=== PATIENT | female | born 1995 | race Caucasian/White ===

== ENCOUNTER 2019-05-01 10:30 | Inpatient (IN) | payer MEDICAID ==
[~2019-05-01 10:30] MED LIST: ETOMIDATE 20 MG INJ; SUCCINYLCHOLINE CHLORIDE 100 MG/5 ML SYG IV; VECURONIUM 10 MG VIAL
[2019-05-01] MEDS ORDERED: LACTATED RINGER'S 1,000 ML IV (10:33)
[2019-05-01] MEDS ORDERED: METHYLERGONOVINE 0.2 MG INJ IM ×2 (11:00→14:00)
[2019-05-01] MEDS ORDERED: CARBOPROST 250 MCG INJ IM ×2 (11:00→14:00)
[2019-05-01] MEDS ORDERED: OXYTOCIN 30 UNITS/LR 500 ML IV ×2 (11:00→14:00)
[2019-05-01] MEDS ORDERED: BETAMET NA PHOS/AC(6 MG/ML) 2 ML INJ SYG IM (11:00)
[2019-05-01] MEDS ORDERED: MISOPROSTOL 200 MCG TAB PR ×2 (11:00→14:00)
[2019-05-01 11:01] LABS: ADD MAN DIFF? NO
[2019-05-01] MEDS ORDERED: morphine 10 MG INJ (11:01)
[2019-05-01] MEDS ORDERED: LIDOCAINE 2% (SDV) 5 ML INJ (11:01)
[2019-05-01] MEDS ORDERED: OXYTOCIN 30 UNITS/LR 500 ML BAG IV (11:01)
[2019-05-01 11:08] LABS: WHITE BLOOD COUNT 12.4 10^3/ul (4.8-10.8)
[2019-05-01 11:08] LABS: BASOPHIL # 0.1 10^3/ul (0.0-0.1); BASOPHILS % 0.4 % (0.0-2.0); EOSINOPHILS % 0.3 % (0.0-7.0); HEMOGLOBIN 11.9 g/dl (12.0-16.0); LYMPHOCYTES # 1.4 10^3/ul (0.8-2.9); LYMPHOCYTES % 11.2 % (15.0-51.0); MEAN CORPUSCULAR HEMOGLOBIN 29.5 pg (29.0-33.0); MEAN CORPUSCULAR HGB CONC 33.1 g/dl (32.0-37.0); MEAN CORPUSCULAR VOLUME 89.1 fl (82.0-101.0); MEAN PLATELET VOLUME 10.9 fl (7.4-10.4); MONOCYTE # 0.5 10^3/ul (0.3-0.9); MONOCYTES % 3.8 % (0.0-11.0); NEUTROPHIL # 10.2 10^3/ul (1.6-7.5); NEUTROPHILS % 82.3 % (39.0-77.0); PLATELET COUNT 181 10^3/UL (140-415); RED BLOOD COUNT 4.04 10^6/ul (4.20-5.40)
[2019-05-01] MEDS ORDERED: LABETALOL HCL 20MG INJ (11:13)
[2019-05-01] MEDS ORDERED: PROPOFOL 20 ML (11:13)
[2019-05-01] MEDS ORDERED: SUGAMMADEX SODIUM 200 MG/2 ML VIAL IV (11:13)
[2019-05-01] MEDS ORDERED: ROCURONIUM 50 MG INJ (11:13)
[2019-05-01] MEDS ORDERED: SUCCINYLCHOLINE CHLORIDE 100 MG/5 ML SYG IV (11:14)
[2019-05-01] MEDS ORDERED: DEXAMETHASONE 4 MG/ML 1 ML INJ (11:14)
[2019-05-01] MEDS ORDERED: ONDANSETRON 4 MG INJ (11:15)
[2019-05-01] MEDS ORDERED: MIDAZOLAM 1 MG/ML 2 ML INJ (11:20)
[2019-05-01 11:24] LABS: INR 0.85; PROTIME 11.7 Sec (11.9-14.9); PT RATIO 0.9
[2019-05-01 11:25] LABS: PARTIAL THROMBOPLASTIN TIME 24.6 Sec (23.0-35.0)
[2019-05-01 11:30] LABS: ALANINE AMINOTRANSFERASE 11 IU/L (13-69); ALBUMIN/GLOBULIN RATIO 0.96; ALKALINE PHOSPHATASE 120 IU/L (42-121); ANION GAP 8 (5-13); ASPARTATE AMINO TRANSFERASE 26 IU/L (15-46); BILIRUBIN,INDIRECT 0.3 mg/dl (0-1.1); BILIRUBIN,TOTAL 0.3 mg/dl (0.2-1.3); BLOOD UREA NITROGEN 6 mg/dl (7-20); CALCIUM 8.2 mg/dl (8.4-10.2); CARBON DIOXIDE 21 mmol/L (21-31); CHLORIDE 110 mmol/L (97-110); CREATININE 0.65 mg/dl (0.44-1.00); Estimated GFR > 60 mL/min (>60); GLUCOSE 103 mg/dl (70-220); POTASSIUM 3.9 mmol/L (3.5-5.1); SODIUM 139 mmol/L (135-144); TOTAL PROTEIN 6.1 g/dl (6.1-8.1); URIC ACID 7.1 mg/dl (3.1-7.9)
[2019-05-01] MEDS ORDERED: ONDANSETRON 4 MG INJ IV (12:00)
[2019-05-01] MEDS ORDERED: ALBUTEROL 0.083% (NEB) 2.5 MG/3 ML AMP HHN (12:00)
[2019-05-01] MEDS ORDERED: LABETALOL HCL 20MG INJ IV (12:00)
[2019-05-01] MEDS ORDERED: EPHEDrine 25 MG/5 ML SYG IV (12:00)
[2019-05-01] MEDS ORDERED: MEPERIDINE 25 MG INJ IV (12:00)
[2019-05-01] MEDS ORDERED: DIPHENHYDRAMINE 50 MG INJ IV (12:00)
[2019-05-01] MEDS ORDERED: KETOROLAC 30 MG INJ IV (12:00)
[2019-05-01] MEDS ORDERED: hydrALAzine 20 MG INJ IV (12:00)
[2019-05-01] MEDS ORDERED: MIDAZOLAM 1 MG/ML 2 ML INJ IV (12:00)
[2019-05-01] MEDS ORDERED: HYDROmorphONE 0.5 MG/0.5 ML SYG IV ×3 (12:00)
[2019-05-01] MEDS ORDERED: LORAZEPAM 2 MG INJ (12:21)
[2019-05-01 12:26] LABS: ADD MAN DIFF? NO
[2019-05-01 12:28] LABS: ABNORMAL IP MESSAGE 1; BASOPHIL # 0.1 10^3/ul (0.0-0.1); BASOPHILS % 0.3 % (0.0-2.0); EOSINOPHILS % 0.1 % (0.0-7.0); HEMATOCRIT 38.8 % (37.0-47.0); HEMOGLOBIN 12.8 g/dl (12.0-16.0); LYMPHOCYTES # 1.3 10^3/ul (0.8-2.9); LYMPHOCYTES % 5.7 % (15.0-51.0); MEAN CORPUSCULAR HEMOGLOBIN 29.2 pg (29.0-33.0); MEAN CORPUSCULAR VOLUME 88.6 fl (82.0-101.0); MONOCYTE # 0.6 10^3/ul (0.3-0.9); MONOCYTES % 2.5 % (0.0-11.0); NEUTROPHIL # 20.9 10^3/ul (1.6-7.5); NEUTROPHILS % 89.8 % (39.0-77.0); PLATELET COUNT 194 10^3/UL (140-415); RED BLOOD COUNT 4.38 10^6/ul (4.20-5.40); RED CELL DISTRIBUTION WIDTH 13.9 % (11.5-14.5)
[2019-05-01 12:28] LABS: WHITE BLOOD COUNT 23.2 10^3/ul (4.8-10.8)
[2019-05-01 12:30] LABS: POSITIVE DIFF @See below
[2019-05-01] MEDS ORDERED: CEFAZOLIN 2 GM/50 ML (PMX) 50 ML IVPB (12:30)
[2019-05-01] MEDS ORDERED: PROPOFOL 100 ML (12:46)
[2019-05-01 12:48] LABS: MAGNESIUM 2.2 mg/dl (1.7-2.5)
[2019-05-01] MEDS ORDERED: hydrALAzine 20 MG INJ (13:02)
[2019-05-01] MEDS: LEVETIRACETAM 1000 MG (PMX) 100 ML IVPB (13:36)
[2019-05-01 13:42] LABS: Allen Test ACCEPTAB; Arterial Blood Gas Oxygen Sat 99.2 mmHG (95.0-98.0); Arterial COHb 0.1 % (0.0-3.0); Arterial Fraction of Oxyhgb 98.5 % (93.0-99.0); Arterial HCO3 16.5 mmol/L (22.0-26.0); Arterial MetHb 0.6 % (0.0-1.5); Arterial pCO2 31.2 mmhg (35-45); MODE VENT - AC; Site Right Radial
[2019-05-01] MEDS ORDERED: LANOLIN HPA 1 PKT TOP (14:00)
[2019-05-01] MEDS: PROPOFOL 100 ML IV (14:10)
[2019-05-01] MEDS: MAGNESIUM SULFATE 20 GM/500 ML 500 ML IV ×2 (14:24→20:32)
[2019-05-01] MEDS: OXYTOCIN 30 UNITS/LR 500 ML IV (14:43)
[2019-05-01 14:49] LABS: MAGNESIUM 1.9 mg/dl (1.7-2.5)
[2019-05-01] MEDS ORDERED: LORAZEPAM 2 MG INJ IV (15:00)
[2019-05-01] MEDS: FENTAnyl (DRIP) 1000 mcg/100mL 100 ML IV ×2 (15:43→23:37)
[2019-05-01] MEDS: CEFEPIME 1GM/50 ML (PMX) 50 ML IVPB ×2 (15:45→21:37)
[2019-05-01] MEDS: MIDAZOLAM (DRIP) 50 mg/50 mL 50 ML IV ×2 (16:37→22:18)
[2019-05-01 16:46] LABS: ADD UMIC YES; UR ASCORBIC ACID NEGATIVE (NEGATIVE); UR BACTERIA FEW /HPF (NONE SEEN); UR BILIRUBIN (Dip) NEGATIVE (NEGATIVE); UR BLOOD (Dip) 1+ mg/dL (NEGATIVE); UR CLARITY CLOUDY (CLEAR); UR COLOR AMBER (YELLOW); UR GLUCOSE (Dip) 2+ mg/dL (NEGATIVE); UR GRANULAR CAST FEW /HPF (NONE SEEN); UR KETONES (Dip) NEGATIVE (NEGATIVE); UR LEUKOCYTE ESTERASE (Dip) NEGATIVE Leu/ul (NEGATIVE); UR MUCUS FEW /HPF (NONE SEEN); UR NITRITE (Dip) NEGATIVE (NEGATIVE); UR NONSQUAMOUS EPITHELIAL CELL 2 /HPF (NONE SEEN); UR RBC 40 /HPF (0-5); UR SPECIFIC GRAVITY (Dip) 1.034 (1.003-1.030); UR SQUAMOUS EPITHELIAL CELL FEW /HPF (FEW); UR TOTAL PROTEIN (Dip) 3+ mg/dl (NEGATIVE); UR UROBILINOGEN (Dip) NEGATIVE (NEGATIVE); UR WBC 160 /HPF (0-5)
[2019-05-01 17:39] LABS: AMPHETAMINE/METHAMPHETAMINE NEGATIVE (NEGATIVE); BARBITURATES NEGATIVE (NEGATIVE)
[2019-05-01 17:40] LABS: CANNABINOIDS POSITIVE (NEGATIVE); COCAINE NEGATIVE (NEGATIVE)
[2019-05-01 17:42] LABS: BENZODIAZEPINES POSITIVE (NEGATIVE); OPIATES POSITIVE (NEGATIVE)
[2019-05-01] MEDS: IBUPROFEN 600 MG TAB PO ×2 (18:00→23:26)
[2019-05-01 18:22] LABS: MAGNESIUM 2.2 mg/dl (1.7-2.5)
[2019-05-01 18:56] LABS: MAGNESIUM 5.1 mg/dl (1.7-2.5)
[2019-05-01 19:15] LABS: HEPATITIS B SURFACE ANTIGEN NEGATIVE (NEGATIVE)
[2019-05-01 19:16] LABS: RAPID PLASMA REAGIN REACTIVE (NR)
[2019-05-01 19:16] LABS: RPR TITER 1:32 (0)
[2019-05-01 20:44] LABS: MAGNESIUM 11.8 mg/dl (1.7-2.5)
[2019-05-01] MEDS: SOD CHLORIDE 0.9% 250 ML IV (21:28)
[2019-05-01 22:00] LABS: MAGNESIUM 5.6 mg/dl (1.7-2.5)
[2019-05-01 23:05] LABS: ALANINE AMINOTRANSFERASE 18 IU/L (13-69); ALBUMIN 2.7 g/dl (3.3-4.9); ALBUMIN/GLOBULIN RATIO 0.87; ALKALINE PHOSPHATASE 121 IU/L (42-121); ANION GAP 8 (5-13); ASPARTATE AMINO TRANSFERASE 39 IU/L (15-46); BILIRUBIN,INDIRECT 0.4 mg/dl (0-1.1); BILIRUBIN,TOTAL 0.4 mg/dl (0.2-1.3); BLOOD UREA NITROGEN 9 mg/dl (7-20); CALCIUM 7.6 mg/dl (8.4-10.2); CARBON DIOXIDE 17 mmol/L (21-31); CHLORIDE 109 mmol/L (97-110); CREATININE 0.66 mg/dl (0.44-1.00); Estimated GFR > 60 mL/min (>60); GLUCOSE 120 mg/dl (70-220); POTASSIUM 4.3 mmol/L (3.5-5.1); SODIUM 134 mmol/L (135-144); TOTAL PROTEIN 5.8 g/dl (6.1-8.1)
[2019-05-01] MEDS: LEVETIRACETAM IV 750 MG in DEXTROSE 5% 100 ML IVPB (23:22)
[2019-05-02] MEDS: MAGNESIUM SULFATE 20 GM/500 ML 500 ML IV ×3 (01:37→05:22)
[2019-05-02] MEDS: PROPOFOL 100 ML IV ×4 (03:07→22:13)
[2019-05-02 04:15] LABS: ADD MAN DIFF? NO
[2019-05-02 04:21] LABS: BASOPHILS % 0.2 % (0.0-2.0); HEMATOCRIT 29.2 % (37.0-47.0); HEMOGLOBIN 9.5 g/dl (12.0-16.0); LYMPHOCYTES # 1.8 10^3/ul (0.8-2.9); LYMPHOCYTES % 9.9 % (15.0-51.0); MEAN CORPUSCULAR HEMOGLOBIN 29.1 pg (29.0-33.0); MEAN CORPUSCULAR HGB CONC 32.5 g/dl (32.0-37.0); MEAN CORPUSCULAR VOLUME 89.3 fl (82.0-101.0); MEAN PLATELET VOLUME 10.3 fl (7.4-10.4); MONOCYTE # 1.2 10^3/ul (0.3-0.9); MONOCYTES % 6.3 % (0.0-11.0); NEUTROPHIL # 15.3 10^3/ul (1.6-7.5); PLATELET COUNT 178 10^3/UL (140-415); RED BLOOD COUNT 3.27 10^6/ul (4.20-5.40); RED CELL DISTRIBUTION WIDTH 14.2 % (11.5-14.5)
[2019-05-02 04:21] LABS: WHITE BLOOD COUNT 18.5 10^3/ul (4.8-10.8)
[2019-05-02 04:42] LABS: ANION GAP 4 (5-13); BLOOD UREA NITROGEN 9 mg/dl (7-20); CALCIUM 6.8 mg/dl (8.4-10.2); CARBON DIOXIDE 21 mmol/L (21-31); CHLORIDE 107 mmol/L (97-110); CREATININE 0.88 mg/dl (0.44-1.00); Estimated GFR > 60 mL/min (>60); GLUCOSE 114 mg/dl (70-220); POTASSIUM 4.8 mmol/L (3.5-5.1); SODIUM 132 mmol/L (135-144)
[2019-05-02 04:55] LABS: MAGNESIUM 7.7 mg/dl (1.7-2.5)
[2019-05-02] MEDS: PANTOPRAZOLE 40 MG INJ IV (05:13)
[2019-05-02] MEDS: IBUPROFEN 600 MG TAB PO ×4 (05:14→21:54)
[2019-05-02] MEDS: MIDAZOLAM (DRIP) 50 mg/50 mL 50 ML IV (06:53)
[2019-05-02] MEDS: CEFEPIME 1GM/50 ML (PMX) 50 ML IVPB ×2 (09:15→20:43)
[2019-05-02] MEDS: LEVETIRACETAM IV 750 MG in DEXTROSE 5% 100 ML IVPB ×2 (09:15→22:04)
[2019-05-02] MEDS: FENTAnyl (DRIP) 1000 mcg/100mL 100 ML IV ×2 (09:35→19:27)
[2019-05-02 11:02] LABS: MAGNESIUM 7.4 mg/dl (1.7-2.5)
[2019-05-02 17:46] LABS: RUBELLA ANTIBODY - IGG 1.74 index
[2019-05-02 17:46] LABS: FLUORESCENT TREPONEMAL AB REACTIVE (NON-REACTIVE)
[2019-05-02] MEDS: IOHEXOL 300MG/ML 150 ML BTL (20:04)
[2019-05-02] MEDS: SOD CHLORIDE 0.9% 100 ML (20:04)
[2019-05-03] MEDS: PROPOFOL 100 ML IV ×2 (03:09→06:49)
[2019-05-03] MEDS: FENTAnyl (DRIP) 1000 mcg/100mL 100 ML IV (05:35)
[2019-05-03] MEDS: IBUPROFEN 600 MG TAB PO ×3 (06:00→15:36)
[2019-05-03 06:10] LABS: ANION GAP 0 (5-13); BLOOD UREA NITROGEN 12 mg/dl (7-20); CALCIUM 7.1 mg/dl (8.4-10.2); CARBON DIOXIDE 26 mmol/L (21-31); CHLORIDE 112 mmol/L (97-110); CREATININE 0.78 mg/dl (0.44-1.00); Estimated GFR > 60 mL/min (>60); GLUCOSE 70 mg/dl (70-220); POTASSIUM 4.3 mmol/L (3.5-5.1); SODIUM 138 mmol/L (135-144)
[2019-05-03 06:14] LABS: MAGNESIUM 3.6 mg/dl (1.7-2.5)
[2019-05-03] MEDS: CEFEPIME 1GM/50 ML (PMX) 50 ML IVPB ×2 (07:54→21:57)
[2019-05-03] MEDS: FAMOTIDINE 20 MG INJ IV ×2 (09:00→21:00)
[2019-05-03] MEDS: LEVETIRACETAM IV 750 MG in DEXTROSE 5% 100 ML IVPB ×2 (09:39→21:57)
[2019-05-03 14:25] LABS: MAGNESIUM 2.4 mg/dl (1.7-2.5)
[2019-05-04] MEDS: IBUPROFEN 600 MG TAB PO ×4 (00:12→17:01)
[2019-05-04] MEDS: CEFEPIME 1GM/50 ML (PMX) 50 ML IVPB (08:43)
[2019-05-04] MEDS: FAMOTIDINE 20 MG INJ IV ×2 (08:43→21:45)
[2019-05-04] MEDS: DIPHTH/TET/ACEL PERTUSS (ADULT) 0.5 ML VIAL IM* (08:58)
[2019-05-04 09:55] LABS: ANION GAP 6 (5-13); BLOOD UREA NITROGEN 9 mg/dl (7-20); CALCIUM 7.9 mg/dl (8.4-10.2); CARBON DIOXIDE 25 mmol/L (21-31); CHLORIDE 109 mmol/L (97-110); CREATININE 0.64 mg/dl (0.44-1.00); Estimated GFR > 60 mL/min (>60); GLUCOSE 84 mg/dl (70-220); SODIUM 140 mmol/L (135-144)
[2019-05-04] MEDS: LEVETIRACETAM IV 750 MG in DEXTROSE 5% 100 ML IVPB ×2 (10:16→21:45)
[2019-05-04 13:51] LABS: RUBELLA ANTIBODY - IGM <20.00 AU/mL
[2019-05-04] MEDS: CEFTRIAXONE 1 GM/50 ML (PMX) 50 ML IVPB (16:00)
[2019-05-04 16:19] LABS: HIV 1&2 ANTIBODY NEGATIVE (NEGATIVE)
[2019-05-04] MEDS: PENICILLIN G BENZ 2.4 MIL UNIT SYG IM (16:52)
[2019-05-05] MEDS: IBUPROFEN 600 MG TAB PO ×5 (00:44→23:46)
[2019-05-05 07:23] LABS: ANION GAP 4 (5-13); BLOOD UREA NITROGEN 8 mg/dl (7-20); CARBON DIOXIDE 25 mmol/L (21-31); CHLORIDE 110 mmol/L (97-110); CREATININE 0.58 mg/dl (0.44-1.00); Estimated GFR > 60 mL/min (>60); GLUCOSE 84 mg/dl (70-220); SODIUM 139 mmol/L (135-144)
[2019-05-05 07:34] LABS: POTASSIUM 3.9 mmol/L (3.5-5.1)
[2019-05-05] MEDS: FAMOTIDINE 20 MG INJ IV ×2 (08:28→21:56)
[2019-05-05] MEDS: LEVETIRACETAM IV 750 MG in DEXTROSE 5% 100 ML IVPB ×2 (09:26→21:55)
[2019-05-05] MEDS ORDERED: LABETALOL 200 MG TAB PO (14:00)
[2019-05-05] MEDS: LABETALOL 200 MG TAB PO (14:09)
[2019-05-05] MEDS: LABETALOL 100 MG TAB PO ×2 (14:23→21:55)
[2019-05-05] MEDS: CEFTRIAXONE 2 GM/50 ML (PMX) 50 ML IVPB (14:40)
[2019-05-05] MEDS: CYANOCOBALAMIN 1000 MCG INJ IM (19:59)
[2019-05-05] MEDS: FERROUS SULFATE (EC) 325 MG TAB PO (21:55)
[2019-05-06] MEDS: IBUPROFEN 600 MG TAB PO ×3 (05:34→18:10)
[2019-05-06 05:53] LABS: IRON 68 ug/dl (35-150)
[2019-05-06 06:02] LABS: % IRON SATURATION 20 % SAT (22-52); TOTAL IRON BINDING CAPACITY 343 ug/dl (241-421)
[2019-05-06 06:26] LABS: ANION GAP 6 (5-13); BLOOD UREA NITROGEN 9 mg/dl (7-20); CALCIUM 8.4 mg/dl (8.4-10.2); CARBON DIOXIDE 24 mmol/L (21-31); CHLORIDE 109 mmol/L (97-110); Estimated GFR > 60 mL/min (>60); GLUCOSE 90 mg/dl (70-220); POTASSIUM 3.6 mmol/L (3.5-5.1); SODIUM 139 mmol/L (135-144)
[2019-05-06 08:00] LABS: FERRITIN 32.8 ng/ml (6.2-137.0)
[2019-05-06] MEDS: FAMOTIDINE 20 MG INJ IV ×2 (09:29→22:04)
[2019-05-06] MEDS: FERROUS SULFATE (EC) 325 MG TAB PO ×2 (09:29→22:01)
[2019-05-06] MEDS: LABETALOL 100 MG TAB PO ×2 (09:31→22:02)
[2019-05-06] MEDS: LEVETIRACETAM IV 750 MG in DEXTROSE 5% 100 ML IVPB ×2 (10:49→23:06)
[2019-05-06 11:27] LABS: ADD MAN DIFF? NO
[2019-05-06 11:31] LABS: WHITE BLOOD COUNT 8.1 10^3/ul (4.8-10.8)
[2019-05-06 11:31] LABS: BASOPHILS % 0.4 % (0.0-2.0); EOSINOPHILS # 0.2 10^3/ul (0.0-0.5); EOSINOPHILS % 2.6 % (0.0-7.0); HEMATOCRIT 28.7 % (37.0-47.0); HEMOGLOBIN 9.4 g/dl (12.0-16.0); LYMPHOCYTES # 1.3 10^3/ul (0.8-2.9); LYMPHOCYTES % 15.6 % (15.0-51.0); MEAN CORPUSCULAR HEMOGLOBIN 28.8 pg (29.0-33.0); MEAN CORPUSCULAR HGB CONC 32.8 g/dl (32.0-37.0); MEAN PLATELET VOLUME 9.9 fl (7.4-10.4); MONOCYTE # 0.4 10^3/ul (0.3-0.9); NEUTROPHIL # 6.1 10^3/ul (1.6-7.5); NEUTROPHILS % 75.3 % (39.0-77.0); PLATELET COUNT 225 10^3/UL (140-415); RED BLOOD COUNT 3.26 10^6/ul (4.20-5.40)
[2019-05-06] MEDS: CEFTRIAXONE 2 GM/50 ML (PMX) 50 ML IVPB (14:33)
[2019-05-07] MEDS: IBUPROFEN 600 MG TAB PO ×4 (00:26→18:15)
[2019-05-07] MEDS: FERROUS SULFATE (EC) 325 MG TAB PO ×2 (09:33→21:09)
[2019-05-07] MEDS: FAMOTIDINE 20 MG INJ IV (09:34)
[2019-05-07] MEDS: LABETALOL 100 MG TAB PO ×2 (09:34→21:11)
[2019-05-07] MEDS: LEVETIRACETAM IV 750 MG in DEXTROSE 5% 100 ML IVPB ×2 (09:43→21:08)
[2019-05-07] MEDS: CEFTRIAXONE 2 GM/50 ML (PMX) 50 ML IVPB (14:29)
[2019-05-07] MEDS: OXYCODONE/ACETAMINOPHEN (5/325) TAB PO ×2 (16:02→21:08)
[2019-05-07 16:13] LABS: GLUCOSE,CSF 48 mg/dl (50-80)
[2019-05-07 16:20] LABS: CSF RBC 0 /uL (0-0); CSF WBC 1 /cmm (0-10)
[2019-05-07 16:21] LABS: CSF RBC 0 /uL (0-0); CSF WBC 1 /cmm (0-10)
[2019-05-07 16:33] LABS: CSF CLARITY CLEAR; CSF COLOR COLORLESS; CSF VOLUME 6.5 ml; CSF#TUBE COUNT TUBE#4; CSF#TUBES REC'D 4
[2019-05-07 16:34] LABS: CSF COLOR COLORLESS
[2019-05-07 16:34] LABS: CSF CLARITY CLEAR; CSF VOLUME 6.5 ml; CSF#TUBE COUNT TUBE#1; CSF#TUBES REC'D 4
[2019-05-07 16:42] LABS: TOTAL PROTEIN,CSF 25 mg/dl (12-60)
[2019-05-07] MEDS: FAMOTIDINE 20 MG TAB PO (21:09)
[2019-05-08] MEDS: IBUPROFEN 600 MG TAB PO ×4 (00:28→18:13)
[2019-05-08] MEDS: OXYCODONE/ACETAMINOPHEN (5/325) TAB PO ×4 (01:27→19:35)
[2019-05-08] MEDS: hydrALAzine 20 MG INJ IV (04:11)
[2019-05-08] MEDS: FERROUS SULFATE (EC) 325 MG TAB PO ×2 (08:20→21:24)
[2019-05-08] MEDS: FAMOTIDINE 20 MG TAB PO ×2 (08:20→21:23)
[2019-05-08] MEDS: LABETALOL 100 MG TAB PO ×2 (08:21→21:26)
[2019-05-08] MEDS: LEVETIRACETAM IV 750 MG in DEXTROSE 5% 100 ML IVPB ×2 (09:00→13:20)
[2019-05-08] MEDS: CEFTRIAXONE 2 GM/50 ML (PMX) 50 ML IVPB (14:51)
[2019-05-08] MEDS ORDERED: LEVETIRACETAM IV 500 MG in DEXTROSE 5% 100 ML IVPB (21:00)
[2019-05-08] MEDS: LEVETIRACETAM 500 MG (PMX) 100 ML IVPB (21:23)
[2019-05-09] MEDS: OXYCODONE/ACETAMINOPHEN (5/325) TAB PO ×5 (00:21→21:55)
[2019-05-09] MEDS: IBUPROFEN 600 MG TAB PO ×4 (02:13→17:51)
[2019-05-09] MEDS: LORAZEPAM 1 MG TAB PO (02:13)
[2019-05-09] MEDS: FAMOTIDINE 20 MG TAB PO ×2 (09:32→20:23)
[2019-05-09] MEDS: LEVETIRACETAM 500 MG (PMX) 100 ML IVPB ×2 (09:32→20:23)
[2019-05-09] MEDS: FERROUS SULFATE (EC) 325 MG TAB PO ×2 (09:33→20:23)
[2019-05-09] MEDS: LABETALOL 100 MG TAB PO ×2 (09:34→20:27)
[2019-05-09] MEDS: CEFTRIAXONE 2 GM/50 ML (PMX) 50 ML IVPB (15:17)
[2019-05-09 23:03] LABS: VDRL, CSF NON-REACTIVE
[2019-05-10] MEDS: IBUPROFEN 600 MG TAB PO ×4 (00:32→18:13)
[2019-05-10] MEDS: OXYCODONE/ACETAMINOPHEN (5/325) TAB PO ×5 (03:04→23:09)
[2019-05-10] MEDS: LEVETIRACETAM 500 MG (PMX) 100 ML IVPB (09:33)
[2019-05-10] MEDS: FERROUS SULFATE (EC) 325 MG TAB PO ×2 (09:33→23:07)
[2019-05-10] MEDS: FAMOTIDINE 20 MG TAB PO ×2 (09:34→23:07)
[2019-05-10] MEDS: LABETALOL 100 MG TAB PO ×2 (09:34→23:07)
[2019-05-10] MEDS ORDERED: NIFEdipine 10 MG CAP PO (18:00)
[2019-05-10] MEDS: LEVETIRACETAM 250 MG TAB PO (23:06)
[2019-05-10] MEDS: NIFEdipine (XL) 30 MG TAB PO (23:06)
[2019-05-11] MEDS: IBUPROFEN 600 MG TAB PO ×5 (00:55→23:55)
[2019-05-11] MEDS: OXYCODONE/ACETAMINOPHEN (5/325) TAB PO (03:16)
[2019-05-11] MEDS: LABETALOL 100 MG TAB PO ×2 (08:43→20:37)
[2019-05-11] MEDS: FERROUS SULFATE (EC) 325 MG TAB PO ×2 (08:43→20:37)
[2019-05-11] MEDS: FAMOTIDINE 20 MG TAB PO ×2 (08:43→20:37)
[2019-05-11] MEDS: NIFEdipine (XL) 30 MG TAB PO (08:43)
[2019-05-11] MEDS: LEVETIRACETAM 250 MG TAB PO ×2 (08:43→22:18)
[2019-05-11] MEDS: PENICILLIN G BENZ 2.4 MIL UNIT SYG IM (19:07)
[2019-05-12] MEDS: IBUPROFEN 600 MG TAB PO ×3 (05:25→16:26)
[2019-05-12] MEDS: LEVETIRACETAM 250 MG TAB PO ×2 (09:02→21:00)
[2019-05-12] MEDS: LABETALOL 100 MG TAB PO ×2 (09:02→20:59)
[2019-05-12] MEDS: FERROUS SULFATE (EC) 325 MG TAB PO ×2 (09:03→21:00)
[2019-05-12] MEDS: NIFEdipine (XL) 30 MG TAB PO (09:03)
[2019-05-12] MEDS: FAMOTIDINE 20 MG TAB PO ×2 (09:03→21:00)
[2019-05-13] MEDS: IBUPROFEN 600 MG TAB PO ×6 (01:46→23:01)
[2019-05-13] MEDS: FERROUS SULFATE (EC) 325 MG TAB PO ×2 (09:03→20:05)
[2019-05-13] MEDS: LABETALOL 100 MG TAB PO ×2 (09:03→20:05)
[2019-05-13] MEDS: FAMOTIDINE 20 MG TAB PO ×2 (09:03→20:04)
[2019-05-13] MEDS: NIFEdipine (XL) 30 MG TAB PO (09:03)
[2019-05-13] MEDS: LEVETIRACETAM 250 MG TAB PO ×2 (09:03→20:04)
[2019-05-13] MEDS: ACETAMINOPHEN 500 MG TAB PO (23:59)
[2019-05-14] MEDS: IBUPROFEN 600 MG TAB PO ×5 (05:24→22:34)
[2019-05-14] MEDS: NIFEdipine (XL) 30 MG TAB PO (08:15)
[2019-05-14] MEDS: FAMOTIDINE 20 MG TAB PO ×2 (08:15→22:27)
[2019-05-14] MEDS: LABETALOL 100 MG TAB PO ×2 (08:16→22:27)
[2019-05-14] MEDS: FERROUS SULFATE (EC) 325 MG TAB PO ×2 (08:16→22:27)
[2019-05-15] MEDS: ACETAMINOPHEN 1000MG/100ML IV 100 ML IVPB (00:28)
[2019-05-15] MEDS: IBUPROFEN 600 MG TAB PO ×2 (06:02→11:12)
[2019-05-15] MEDS: FAMOTIDINE 20 MG TAB PO (09:04)
[2019-05-15] MEDS: NIFEdipine (XL) 30 MG TAB PO (09:04)
[2019-05-15] MEDS: FERROUS SULFATE (EC) 325 MG TAB PO (09:05)
[2019-05-15] MEDS: LABETALOL 100 MG TAB PO (09:05)
== END 2019-05-15 16:36 | disposition still patient (30) | DRG 786 ==
LOC: L-D 10:30 → MS1 05-04 00:26 → MS3 05-11 16:45 → MS1 05-04 19:32 → L-D 10:43 → ICU 11:31
PROC: 10D00Z1 Extraction of Products of Conception, Low, Open Approach (ICD-10-PCS; principal; 2019-05-01 11:00)
DX: O15.03 Eclampsia complicating pregnancy, third trimester (principal); O45.93 Premature separation of placenta, unspecified, third trimester; G93.40 Encephalopathy, unspecified; O98.12 Syphilis complicating childbirth; O99.355 Diseases of the nervous system complicating the puerperium; G40.409 Other generalized epilepsy and epileptic syndromes, not intractable, without status epilepticus; O75.89 Other specified complications of labor and delivery; R06.03 Acute respiratory distress; O90.81 Anemia of the puerperium; D64.9 Anemia, unspecified; O99.345 Other mental disorders complicating the puerperium; F32.9 Major depressive disorder, single episode, unspecified; Z3A.30 30 weeks gestation of pregnancy; Z37.0 Single live birth
CPT/HCPCS: 31500; 36600; 70470; 71045; 80048; 80053; 80307; 81001; 82728; 82803; 82945; 83540; 83735; 84157; 84560; 85025; 85384; 85610; 85730; 86592; 86703; 86762; 86780; 86850; 86900; 86901; 87070; 87081; 87086; 87340; 87591; 88307; 89051; 90715; 94002; 94003; 94770; 95819; 99285-25; 99464

== ENCOUNTER 2019-05-18 21:38 | Emergency (ER) | payer MEDICAID ==
[2019-05-18] MEDS: PENICILLIN G BENZ 2.4 MIL UNIT SYG IM (22:52)
== END 2019-05-18 23:40 | disposition home or self-care (01) ==
LOC: FTE 23:40
DX: O98.13 Syphilis complicating the puerperium (principal); A51.49 Other secondary syphilitic conditions; Z09 Encounter for follow-up examination after completed treatment for conditions other than malignant neoplasm
CPT/HCPCS: 96372; 99284-25